=== PATIENT | female | born 2000 | race Caucasian/White ===

== ENCOUNTER 2024-07-19 17:07 | Emergency (ER) | payer OTHER ==
[~2024-07-19] VITALS: Ht 162.6 cm; Wt 71.0 kg
[~2024-07-19 17:07] MED LIST: ADDE10 PO; BUPR-344 PO; BUSP15 PO; QUET200T PO
[2024-07-19] MEDS ORDERED: LITH300T4 PO (17:23)
[2024-07-19] MEDS ORDERED: METH-811 PO (17:23)
[2024-07-19] MEDS ORDERED: MELO-108 PO (17:23)
[2024-07-19] MEDS ORDERED: CYCL10TA16 PO (17:23)
[2024-07-19] MEDS ORDERED: GABA-1181 PO (17:23)
[2024-07-19 17:37] LABS: COVID AG,FIA SOURCE NASAL SWAB
[2024-07-19 17:39] VITALS: TEMP 98.3
[2024-07-19 17:42] LABS: BASOPHILS % (AUTO) 1.1 % (0.0-2.0); HEMATOCRIT 36.2 % (36-46); HEMOGLOBIN 12.3 g/dL (12.0-16.0); LYMPHOCYTES % (AUTO) 41.7 % (22.0-44.0); MEAN CORPUSCULAR HEMOGLOBIN 31.6 pg (26.0-34.0); MEAN CORPUSCULAR VOLUME 93 fL (80-100); MONOCYTES # (AUTO) 0.6 K/uL (0.1-1.0); MONOCYTES % (AUTO) 8.2 % (2.0-9.0); NEUTROPHILS # (AUTO) 3.4 K/uL (1.8-7.7); PLATELET COUNT (AUTO) 371 K/uL (150-450); RED BLOOD CELL COUNT(AUTO) 3.89 MIL/uL (4.00-5.20); RED CELL DISTRIBUTION WIDTH 12.9 % (11.5-14.5); WHITE BLOOD COUNT (AUTO) 7.1 K/uL (4.5-11.0)
[2024-07-19 17:48] LABS: ANION GAP 10 mmol/L (8-16); CALCIUM, TOTAL 8.5 mg/dL (8.8-10.5); CARBON DIOXIDE 25 mmol/L (22-29); CHLORIDE 106 mmol/L (98-107); CREATININE 0.77 mg/dL (0.60-1.30); GLOMERULAR FILTR. RATE CALC > 60 mL/min (>60); GLUCOSE,RANDOM 93 mg/dL (70-110); POTASSIUM 3.7 mmol/L (3.5-5.1); SODIUM SERUM 141 mmol/L (136-145); UREA NITROGEN, BLOOD 11 mg/dL (7-18)
[2024-07-19 17:55] LABS: SARS-COV2 (COVID) ANTIGEN,FIA Negative (Negative)
[2024-07-19 17:58] LABS: ALCOHOL, BLOOD (SERUM) < 3 mg/dL (0-10)
[2024-07-20 07:54] VITALS: BP 129/87; PULSE 85; RESP 17; O2SAT 98
== END 2024-07-20 11:29 ==
LOC: EMS 17:07
DX: R45.851 Suicidal ideations (principal); S50.812A Abrasion of left forearm, initial encounter; F31.9 Bipolar disorder, unspecified; F41.9 Anxiety disorder, unspecified; F12.90 Cannabis use, unspecified, uncomplicated; Z79.1 Long term (current) use of non-steroidal anti-inflammatories (NSAID); Z20.822 Contact with and (suspected) exposure to COVID-19
CPT/HCPCS: 99285; 87426; 80048; 84703; 85025; 36415; G0480